=== PATIENT | male | born 1970 | race Caucasian/White ===

== ENCOUNTER 2016-05-29 12:32 | Inpatient (IN) | payer OTHER ==
[2016-05-29] MEDS ORDERED: HYDROmorphONE/DILAUDID 1 MG/ML SYR IVP ONE (13:09)
[2016-05-29] MEDS ORDERED: NS 1,000 ML IV ONE (13:09)
[2016-05-29] MEDS ORDERED: ONDANSETRON 4 MG/2 ML VIAL IVP ONE (13:09)
--- NOTE | 2016-05-29 13:13 | EDPHY ---
H & P Stated Complaint: Chrohns flare up. Sent by PCP. Time Seen by Provider: 05/29/16 12:59 HPI/ROS: CHIEF COMPLAINT: Abdominal pain, history of Crohn's HISTORY OF PRESENT ILLNESS: Patient is a 45-year-old man who comes to the emergency department from his doctor's office. He has a history of Crohn's disease status post colectomy and ileo-anal anastomosis with pouch in 2001. He frequently gets pouchitis which resolves with Flagyl. He has been on Flagyl now for 2 days. He feels dehydrated and cannot keep fluids down he continues to have a large amount of diarrhea. He saw Dr. Brown his primary today who recommended he come to the hospital for admission. Dr. Borwn spoke with Dr. Wilder over the phone who agreed to consult. They instructed him to come to the emergency department. The patient was at an emergency department at [facility] last night and treated for sinus infection. He received 2 L of hydration there as well. Does have small amount of blood in his stool. No fever. REVIEW OF SYSTEMS: Constitutional: denies: chills, fever, recent illness, recent injury EENTM: denies: blurred vision, double vision, nose congestion Respiratory: denies: cough, shortness of breath Cardiac: denies: chest pain, irregular heart rate, lightheadedness, palpitations Gastrointestinal/Abdominal: See HPI Genitourinary: denies: dysuria, frequency, hematuria, pain Musculoskeletal: denies: joint pain, muscle pain Skin: denies: lesions, rash, jaundice, bruising Neurological: denies: headache, numbness, paresthesia, tingling, dizziness, weakness Hematologic/Lymphatic: denies: blood clots, easy bleeding, easy bruising Immunologic/allergic: denies: HIV/AIDS, transplant EXAM: GENERAL: Well-appearing, well-nourished and in no acute distress. HEAD: Atraumatic, normocephalic. EYES: Pupils equal round and reactive to light, extraocular movements intact, sclera anicteric, conjunctiva are normal. ENT: TMs normal, nares patent, oropharynx clear without exudates. Moist mucous membranes. NECK: Normal range of motion, supple without lymphadenopathy or JVD. LUNGS: Breath sounds clear to auscultation bilaterally and equal. No wheezes rales or rhonchi. HEART: Regular rate and rhythm without murmurs, rubs or gallops. ABDOMEN: Left lower quadrant pain with only minimal tenderness, normoactive bowel sounds. No guarding, no rebound. No masses appreciated. BACK: No CVA tenderness, no spinal tenderness, step-offs or deformities EXTREMITIES: Normal range of motion, no pitting or edema. No clubbing or cyanosis. NEUROLOGICAL: Cranial nerves II through XII grossly intact. Normal speech, normal gait. 5/5 strength, normal movement in all extremities, normal sensation PSYCH: Normal mood, normal affect. SKIN: Warm, dry, normal turgor, no visible rashes or lesions. Source: Patient Exam Limitations: No limitations - Personal History Current Tetanus Diphtheria and Acellular Pertussis (TDAP): Yes - Medical/Surgical History Hx Asthma: No Hx Chronic Respiratory Disease: No Hx Diabetes: No Hx Cardiac Disease: No Hx Renal Disease: No Hx Cirrhosis: No Hx Alcoholism: No Hx HIV/AIDS: No Hx Splenectomy or Spleen Trauma: No Other PMH: Chrohns. Colectomy. - Family History Significant Family History: No pertinent family hx - Social History Smoking Status: Never smoked Alcohol Use: Sober Drug Use: None Constitutional: Initial Vital Signs Temperature (C) 36.6 C 05/29/16 12:38 Heart Rate 130 H 05/29/16 12:38 Respiratory Rate 18 05/29/16 12:38 Blood Pressure 111/86 H 05/29/16 12:38 O2 Sat (%) 96 05/29/16 12:38 O2 Delivery Mode Room Air O2 (L/minute) 2 Allergies/Adverse Reactions: Sulfa (Sulfonamide Antibiotics) Allergy (Intermediate, Verified 03/04/10 12:41) Hives adhesive tape Allergy (Mild, Verified 03/15/10 09:01) morphine [Morphine] Allergy (Verified 03/04/10 12:42) Itching Home Medications: Medication Instructions Recorded Aspirin [Aspirin 81mg (*)] 81 mg PO DAILY 05/29/16 Calcium Carbonate [Oyster Shell 500 mg PO DAILY 05/29/16 Calcium 500 mg (*)] Cholecalciferol Vit D3 [Vitamin D3 2,000 units PO DAILY 05/29/16 2000 units tab (OTC)] Cyclobenzaprine [Flexeril 10 MG 10 mg PO DAILY PRN 05/29/16 (*)] Herbals/Supplements -Info Only 1 ea PO DAILY 05/29/16 Imipramine HCl [Tofranil] 10 mg PO DAILY 05/29/16 Multivitamins [Multivitamin (*)] 1 each PO DAILY 05/29/16 Vedolizumab [Entyvio] 300 mg IV Q56D 05/29/16 metroNIDAZOLE [Flagyl 500 mg (*)] 500 mg PO TID PRN 05/29/16 Medical Decision Making ED Course/Re-evaluation: The patient and his are adamant about admission. The would not like to attempt control his symptoms in the emergency department. It is unclear why they were not directly admitted. Will consult the hospitalist service and repeat laboratory work and attempt to achieve pain and nausea control. 1:20 p.m. discussed the case with Leandra who will admit to the medical service with Dr. Rangel. Differential Diagnosis: Partial list of the Differential diagnosis considered include but were not limited to; Crohn's disease, hepatitis, viral syndrome, dehydration and although unlikely based on the history and physical exam, I also considered appendicitis biliary disease, intussusception, volvulus, ischemia, obstruction. - Data Points Laboratory Results: Laboratory Results 05/29/16 13:16 05/29/16 13:16 Medications Given: Discontinued Medications Hydromorphone HCl (Dilaudid) 1 mg IVP EDNOW ONE Stop: 05/29/16 13:10 Last Admin: 05/29/16 13:28 Dose: 1 mg Hydromorphone HCl (Dilaudid) 0.5 mg IVP Q3 PRN PRN Reason: Pain, Severe Unable to Take PO Stop: 06/08/16 15:46 Last Admin: 05/29/16 20:58 Dose: 0.5 mg Sodium Chloride (Ns) 1,000 mls @ 0 mls/hr IV ONCE ONE PRN Reason: Wide Open Stop: 05/29/16 13:10 Last Admin: 05/29/16 13:27 Dose: 1,000 mls Ondansetron HCl (Zofran) 4 mg IVP EDNOW ONE Stop: 05/29/16 13:10 Last Admin: 05/29/16 13:27 Dose: 4 mg Departure - Departure Disposition: [facility] Inpatient Acute Clinical Impression: Abdominal pain Qualifiers: Abdominal location: left lower quadrant Qualified Code(s): R10.32 - Left lower quadrant pain Condition: Fair
[2016-05-29 13:28] LABS: % IMMATURE GRANULYOCYTES 0.4 % (0.0-1.1); ABSOLUTE IMMATURE GRANULOCYTES 0.03 10^3/uL (0.00-0.10); ADD DIFF? NO; ADD MORPH? NO; ADD SCAN? NO; ATYPICAL LYMPHOCYTE FLAG 20 (0-99); FRAGMENT RBC FLAG 0 (0-99); HEMATOCRIT 51.5 % (40.0-51.0); HEMOGLOBIN 17.8 g/dL (13.7-17.5); LEFT SHIFT FLG 60 (0-99); LIPEMIA HEMOLYSIS FLAG 90 (0-99); MEAN CELL HEMOGLOBIN 30.3 pg (27.9-34.1); MEAN CELL HEMOGLOBIN CONCENTR. 34.6 g/dL (32.4-36.7); MEAN CELL VOLUME 87.7 fL (81.5-99.8); MEAN PLATELET VOLUME 8.7 fL (8.7-11.7); PLATELET CLUMPS FLAG 20 (0-99); PLATELET COUNT 305 10^3/uL (150-400); RED BLOOD CELL COUNT 5.87 10^6/uL (4.40-6.38)
[2016-05-29 13:45] LABS: ALANINE AMINOTRANSFERASE 57 IU/L (21-72); ALBUMIN 5.1 g/dL (3.5-5.0); ALKALINE PHOSPHATASE 102 IU/L (38-126); ANION GAP 18 mEq/L (8-16); ASPARTATE AMINOTRANSFERASE 56 IU/L (17-59); BILIRUBIN,TOTAL 1.2 mg/dL (0.1-1.4); BILIRUBIN-CONJUGATED 0.6 mg/dL (0.0-0.5); BILIRUBIN-UNCONJUGATED 0.6 mg/dL (0.0-1.1); CALCIUM 10.1 mg/dL (8.5-10.4); CARBON DIOXIDE 18 mEq/l (22-31); CHLORIDE 103 mEq/L (97-110); CREATININE 1.3 mg/dL (0.7-1.3); GLOMERULAR FILTRATION RATE 59; GLUCOSE 126 mg/dL (70-100); POTASSIUM 4.8 mEq/L (3.5-5.2); SODIUM 139 mEq/L (134-144); TOTAL PROTEIN 8.6 g/dL (6.3-8.2)
[2016-05-29] MEDS ORDERED: oxyCODONE IR 5 MG TAB PO PRN (15:47)
[2016-05-29] MEDS ORDERED: ONDANSETRON DISINTEGRATING 4 MG TAB PO PRN (15:47)
[2016-05-29] MEDS ORDERED: HYDROmorphONE/DILAUDID 1 MG/ML SYR IVP PRN (15:47)
[2016-05-29] MEDS ORDERED: ZOLPIDEM TARTRATE 5 MG TAB PO PRN (15:47)
[2016-05-29] MEDS ORDERED: CYCLOBENZAPRINE 10 MG TAB PO PRN (16:26)
--- NOTE | 2016-05-29 16:50 | GHP ---
[f rep st] HISTORY AND PHYSICAL DATE OF ADMISSION: 05/29/2016 CHIEF COMPLAINT: Abdominal pain, fever. HISTORY OF PRESENT ILLNESS: The patient is a 45-year-old man with a history significant for Crohn d isease. He underwent a total colectomy with ileoanal anastomosis many years ago. Since then, his p reliminary diagnosis of ulcerative colitis was changed to Crohn disease. He is followed by [facility] and is currently treated with Entyvio infusions. He has been on this since May 2015. Dylan moreno has a history significant for recurrent pouchitis. Typically, he gets this when he gets dehydrate d and sometimes gets secondary bowel obstructions and generally needs inpatient hydration and treatm ent. He has been ill over the last week with a viral illness and sinus symptoms. Three days ago, he deve loped fevers and increased abdominal pain, associated with nausea, vomiting. He also had increasing diarrhea. He went to the emergency department last night at [facility]. They diagnosed him zulema russo a viral illness, hydrated him, and sent him home. His labs were remarkable for a slightly elevate d creatinine of 1.34 and a white count of 10. He said he felt pretty good when he left the ER, and when he went to follow up with his primary care provider today, Dr. aSm Brown, Dr. Brown took a look at him and opted to admit him to the hospital here for further evaluation and treatment of like ly recurrent pouchitis. He has significant diarrhea, greater than his baseline, which is typically well controlled with imipramine. His abdominal pain is improved with a dose of Dilaudid. He has no current nausea, vomiting, but had some this morning in the office. He denies chest pain, shortness of breath. He has had a mild cough and increased sinus pressure and tooth pain. He has had decrea sed urination. No lower extremity edema. No muscle aches. No joint aches, and no rashes. REVIEW OF SYSTEMS: A 10-point review of systems was done with pertinent positives present in HPI. PAST MEDICAL HISTORY: 1. Crohn disease, status post laparoscopic colectomy with ileoanal anastomosis. 2. Recurrent pouchitis and small bowel obstructions with stenosis of previous bowel anastomosis. 3. Palpitations, followed by Dr. Trinh of [facility], with frequent PVCs and PACs. 4. Dyslipidemia, intolerant of statins. 5. Intermittent insomnia. 6. Gastroesophageal reflux disease, status post laparoscopic Rasheed fundoplication with hiatal vidhya ia repair. 7. Sleep apnea, status post UPPP. Previously on CPAP prior to surgery. 8. History of vitamin D deficiency. 9. History of ocular migraines. 10. Obstructive no please put under sleep apnea after status post. PAST SURGICAL HISTORY: Includes a Rasheed fundoplication, ileoanal anastomosis with pelvic pouch, an astomotic stenosis status post dilation 4-5 times, status post colectomy, status post rhinoplasty, t onsillectomy, radiofrequency inferior turbinate reduction, UPPP, right shoulder labral repair. SOCIAL HISTORY: He drinks 1-2 alcoholic drinks per month. Rarely smokes cigars and no cigarettes. No recreational drugs. He is . FAMILY HISTORY: Father had heart disease in his 60s. Mother with heart disease. Both parents also have diabetes. ALLERGIES: Sulfa drugs and simvastatin. CURRENT MEDICATIONS: Aspirin 81 daily, calcium, Flexeril 10 mg as needed, Entyvio 300 mg IV every 8 weeks, Flagyl 250 q.i.d. as needed, imipramine 10 mg at night, Multi-Vit daily, Protonix daily, vit cedeño D3 2000 daily. PHYSICAL EXAMINATION: VITAL SIGNS: He is afebrile. Heart rate 113, blood pressure 134/80, respira tions 16. He is 95% on room air. GENERAL: He is a very pleasant 45-year-old. He is currently in no distress. He is alert and oriented. Speech is fluent. HEENT: Head is atraumatic. Pupils equa l, extraocular movements intact. Sclerae anicteric. Mucous membranes are slightly dry. Oropharynx is clear. Does have some sinus tenderness over his maxillary sinuses. NECK: Supple. No adenopat hy. No thyroid nodules noted. CARDIAC: Heart is tachycardic but regular and no murmur. LUNGS: C lear bilaterally. No wheeze or rhonchi. ABDOMEN: Slightly distended. Positive bowel sounds, whic h are high pitched. No significant tenderness to deep palpation. No guarding or rebound. EXTREMIT IES: No clubbing, cyanosis, or edema. MUSCULOSKELETAL: No joint deformities or effusions. SKIN: Intact, no rash. NEUROLOGIC: He is intact, moves all 4 extremities. LABORATORY DATA: CBC shows a white count of 8.5, hemoglobin 17.8, with a platelet count of 305. Ch emistry shows normal electrolytes, CO2 of 18, BUN 16, with a creatinine of 1.3. Glucose 126. LFTs are unremarkable. ASSESSMENT AND PLAN: A 45-year-old with a history of Crohn disease, recurrent pouchitis, status pos t ileoanal anastomosis, presents with fevers for 3 days and development of abdominal pain, nausea, v omiting, and diarrhea. 1. Probable pouchitis associated with his Crohn disease. No obvious obstruction as he has diarrhea and ongoing bowel movements, although he is somewhat distended. Plan will be to admit him to the ospital for IV fluids, supportive care. Will check a stool panel for GI pathogens, including C diff icile colitis. Start him on Flagyl and Cipro for presumed pouchitis. Dr. Anderson of [facility] has been contacted. I did discuss the case in detail with him. He will see him later in consultati on and decide on further procedures if needed. 2. Crohn disease, currently on Entyvio infusions every 8 weeks and has been tolerating this well. Could consider prednisone therapy if his C difficile is negative. 3. Palpitations, seen by Dr. Trinh. History of premature ventricular contractions and premature at rial contractions, which are symptomatic. Follow up outpatient as previous. 4. Acute renal insufficiency secondary to dehydration. Creatinine 1.3. Will hydrate him and wilfred estivene to follow throughout his hospitalization. Avoid nephrotoxins for now. 5. Dyslipidemia, intolerant of statins. 6. Insomnia. 7. Obstructive sleep apnea, status post uvulopalatopharyngoplasty. 8. History of gastroesophageal reflux disease on Protonix, continue. 9. Vitamin D deficiency, on supplements. 10. Deep vein thrombosis prophylaxis. Will initiate low-molecular weight heparin. /[id number]/MODL
[2016-05-29 18:52] LABS: VITAMIN D 25-HYDROXY TOTAL 49.1 ng/mL (30-100)
--- NOTE | 2016-05-29 20:14 | GCON ---
[f rep st] CONSULTATION GASTROENTEROLOGY CONSULTATION DATE OF CONSULTATION: 05/29/2016 REFERRING PHYSICIAN: Evelyn Rangel MD REASON FOR CONSULTATION: Probable pouchitis flare. HISTORY OF PRESENT ILLNESS: The patient is a very pleasant 45-year-old male who has a history of inflammatory bowel disease. He was initially diagnosed in the late with what was thought to be ulcerative colitis at that time. He had a difficult course with multiple flares. At some point in 2001, he was placed on Remicade which did seem to work initially, but lost its efficacy. He was admitted back to the hospital in 2003 with very high-dose IV steroids, and still was not getting better. Then in 2003, he did undergo a total colectomy with ileoanal pouch formation. There was a question whether there was Crohn disease instead of ulcerative colitis, as there was some transmural inflammation. There was no evidence of granulomas on any biopsy taken that I can see in our records, and there was no evidence of any small-bowel inflammation at that time on any imaging studies. He did have multiple episodes of pouchitis which was usually well treated with the antibiotics. He has had recurrent courses of antibiotics a number of times a year for pouchitis. He used to be on Cipro and Flagyl, but in 2014 he had a tendon issue probably related to his Cipro, so he no longer uses the Cipro. In 2014 to 2015, he had multiple admissions and had a CT scan that was performed down at the [facility] in 2015 that was felt to be more consistent with Crohn colitis. The CT scan reportedly showed multifocal small bowel dilation up to 6 cm with multifocal small bowel wall thickening and mild mesenteric hyperemia with a focal transition point between dilated small bowel and decompressed bowel at anastomotic site. I do not see a biopsy confirmation of that diagnosis. He has had a number flexible sigmoidoscopy/ pouchoscopy to evaluate his pouchitis, and biopsies there revealed only pouchitis, no evidence of granulomas. He has been started on Entyvio he believes in May of 2015 which did work quite well to reduce his inflammation from what was thought to be Crohn's. He still has had a number of episodes of pouchitis. Interestingly, he gets quite dehydrated with episodes of pouchitis and requires hospitalization and IV antibiotics. This has been a recurrent, consistent presentation for him over the last few years. When he does have episodes of pouchitis, he can have 15-20 bowel movements a day. When he is in remission at this 2-5 bowel movements that are much more formed. He also has taken VSL#3 in the past with good response for his pouchitis. However, his insurance does not cover it and it is expensive for him to obtain at pressure, so he has been using different probiotics. Over the last week or so, he has had a viral illness and he thought he had some signs and symptoms of possible sinusitis. He had fevers up to 103 last night, along with some headaches, and presented to the [facility] for evaluation. They hydrated him, diagnosed him with a viral illness, and sent him home. He saw his PCP Dr. Brown up in [place] today and he called me saying that he believes the patient needs admission for his pouchitis and reviewed his previous history with me and he has referred the patient down to [facility] for admission and treatment of presumed pouchitis. Pablo does feel better with IV hydration. He no longer has any fevers. He did not complain of significant abdominal pain. He is anxious to get his antibiotics. He is admitted for the above and I am here to help evaluate and treat in that regard. PAST MEDICAL HISTORY: 1. Inflammatory bowel disease initially thought to be ulcerative colitis status post total colectomy, ileoanal anastomosis, with a small amount of rectal cuff present, now known to be Crohn disease. 2. Recurrent pouchitis, small-bowel obstructions and adhesions. 3. History of reflux status post Rasheed fundoplication. 4. Sleep apnea status post UPPP. He had used CPAP, his symptoms have recurred , but he has not yet taken his CPAP out of storage. 5. Vitamin D deficiency for which he is on supplements and has been at normal levels in the past. 6. Dyslipidemia. PAST SURGICAL HISTORY: Rasheed fundoplication, total colectomy with ileoanal pouch formation with a small amount of rectal cuff present, a UPPP, tonsillectomy, rhinoplasty, right shoulder labral repair, inferior turbinate reduction. MEDICATIONS: Medications at home include Entyvio infusions, imipramine, vitamin D 4000 units b.i.d., aspirin 81 mg, probiotics, calcium, and multivitamins. ALLERGIES: Sulfa causes rash and Cipro causes tendon issues. SOCIAL HISTORY: He does not smoke cigarettes. He drinks alcohol infrequently. FAMILY HISTORY: A cousin with Crohn disease. No other family history of inflammatory bowel disease. Mother had polyps. Both parents also have diabetes. REVIEW OF SYSTEMS: A comprehensive review systems was performed and was negative other than noted in the HPI. PHYSICAL EXAM: GENERAL: A well-developed, well-nourished male in no acute distress sitting in his bed comfortably. VITAL SIGNS: Blood pressure 120/70, pulse tachycardic at 113, respiratory rate is 16, he is 93% on room air, temperature 36.8. HEENT: Eyes: Anicteric, PERRLA, EOMI. Mouth: No lesions, moist membranes. NECK: Supple. Full range of motion. No JVD. BACK: No spine tenderness. No CVA tenderness. LUNGS: Clear to auscultation. CARDIAC: S1, S2. Tachycardic. No murmurs, rubs or gallops. ABDOMEN: Bowel sounds are normal in pitch and frequency. Soft with mild tenderness to deep palpation with no rebound, no guarding. EXTREMITIES: No cyanosis, clubbing, or edema. NEUROLOGIC: Cranial nerves intact. Nonfocal. SKIN: No stigmata of liver disease. No rashes. LABORATORY DATA: WBC 8.53, hemoglobin 17.8, hematocrit 51.5, platelet count 3/ 5. Sodium 139, potassium 4.8, chloride 103, bicarb 18, BUN 16, creatinine 1.3, glucose 126. Calcium 10.1, total bilirubin 1.2, AST 56, ALT 57, alkaline phosphatase 102, total protein 8.6, albumin 5.1, lipase 53. MEDICAL RECORDS REVIEW: In his outpatient chart we have: 1. A pouchoscopy performed December 25, 2012: Some erosions and erythema at the anastomosis. Rectal cuff was biopsied. Pathology reveals chronic colitis with focal activity. 2. CT of the abdomen and pelvis August 16, 2012: Evidence of previous colectomy with creation of ileal pouch. There was no abscess, inflammatory change, or evidence of obstruction. 3. A pouchoscopy October 20, 2010: Erythematous rectal mucosa. Pouch and anastomosis biopsied. Mild active pouchitis and mild active chronic proctitis are the 2 results. 4. Going back to biopsies from year 2001: Active colitis [id number]. 5. Pathology from February 27, 2002: [id number] moderate colitis without evidence of granulomas; however, crypt abscesses, altered underlying gland showing slight cytoplasmic differentiation and irregularity. No evidence of granulomas. 6. CT [facility] as noted in the HPI. I do not have the report, but multifocal small bowel dilation to 6 cm, multifocal small bowel thickening, mild mesenteric hyperemia. ASSESSMENT: 1. Probable flare pouchitis. 2. History of inflammatory bowel disease, likely Crohn disease. 3. Fever, probably related to pouchitis. 4. Acute renal insufficiency, most likely related to dehydration. His albumin , total protein, hemoglobin and hematocrit are elevated. His creatinine last night at [facility] was 1.34 and currently is 1.38. I think it will improve with hydration. 5. Sleep apnea. 6. History of reflux. 7. Vitamin D deficiency. 8. Dyslipidemia. RECOMMENDATIONS: 1. Antibiotics. Currently just Flagyl. Hospitalist will decide if there are any antibiotics needed for any sinus issues. Augmentin can also be used to treat pouchitis, as can Xifaxan and even vancomycin. 2. IV hydration. 3. If patient is not improving, I will want to perform a pouchoscopy for evaluation. 4. Check C diff to make sure that it is negative. If can affect the small bowel in certain cases. 5. Check vitamin D and vitamin B12. 6. Further recommendations to follow results of above and clinical course. Thank you for allowing me to participate in this patient's healthcare. Do not hesitate to call me with questions. /[id number]/MODL MTDD
[2016-05-29] MEDS ORDERED: CIPROFLOXACIN 400 MG/DEXTROSE 200 ML IV SCH (21:00)
[2016-05-29] MEDS: HYDROmorphONE/DILAUDID 1 MG/ML SYR IVP PRN (22:14)
[2016-05-29] MEDS: NS 1,000 ML IV SCH (23:07)
[2016-05-30] MEDS: HYDROmorphONE/DILAUDID 1 MG/ML SYR IVP PRN ×3 (01:45→11:39)
[2016-05-30] MEDS: NS 1,000 ML IV SCH (05:12)
[2016-05-30 06:20] LABS: % IMMATURE GRANULYOCYTES 0.2 % (0.0-1.1); ABSOLUTE IMMATURE GRANULOCYTES 0.01 10^3/uL (0.00-0.10); ADD DIFF? NO; ADD MORPH? NO; ADD SCAN? NO; ATYPICAL LYMPHOCYTE FLAG 0 (0-99); FRAGMENT RBC FLAG 0 (0-99); HEMATOCRIT 45.1 % (40.0-51.0); HEMOGLOBIN 15.3 g/dL (13.7-17.5); LEFT SHIFT FLG 80 (0-99); LIPEMIA HEMOLYSIS FLAG 90 (0-99); MEAN CELL HEMOGLOBIN 31.4 pg (27.9-34.1); MEAN CELL HEMOGLOBIN CONCENTR. 33.9 g/dL (32.4-36.7); MEAN CELL VOLUME 92.4 fL (81.5-99.8); MEAN PLATELET VOLUME 8.9 fL (8.7-11.7); PLATELET CLUMPS FLAG 0 (0-99); PLATELET COUNT 276 10^3/uL (150-400); RED BLOOD CELL COUNT 4.88 10^6/uL (4.40-6.38); RED CELL DISTRIBUTION WIDTH 13.2 % (11.5-15.2)
[2016-05-30 06:29] LABS: ALANINE AMINOTRANSFERASE 44 IU/L (21-72); ALBUMIN 3.8 g/dL (3.5-5.0); ALKALINE PHOSPHATASE 75 IU/L (38-126); ANION GAP 11 mEq/L (8-16); ASPARTATE AMINOTRANSFERASE 32 IU/L (17-59); BILIRUBIN,TOTAL 0.6 mg/dL (0.1-1.4); CALCIUM 8.6 mg/dL (8.5-10.4); CARBON DIOXIDE 20 mEq/l (22-31); CHLORIDE 111 mEq/L (97-110); CREATININE 1.1 mg/dL (0.7-1.3); GLOMERULAR FILTRATION RATE > 60; GLUCOSE 106 mg/dL (70-100); POTASSIUM 4.4 mEq/L (3.5-5.2); SODIUM 142 mEq/L (134-144); TOTAL PROTEIN 6.5 g/dL (6.3-8.2)
[2016-05-30] MEDS: ENOXAPARIN 40 MG/0.4 ML SYR SC SCH (09:11)
[2016-05-30] MEDS: CALCIUM CARBONATE 500 MG TAB PO SCH (12:54)
[2016-05-30] MEDS: CHOLECALCIFEROL VIT D3 2,000 UNITS TAB/CAP PO SCH (12:54)
[2016-05-30] MEDS: ASPIRIN 81 MG CHEWABLE TAB PO SCH (12:54)
[2016-05-30] MEDS: MULTIVITAMINS 1 EACH TAB PO SCH (12:55)
[2016-05-30] MEDS: Imipramine Hcl [Tofranil] 10 MG PO SCH (12:55)
--- NOTE | 2016-05-30 14:27 | HOSPPROG ---
Hospitalist Progress Note Assessment/Plan: 45-year-old man with a history of Crohn's disease status post colectomy with a ileal anal anastomosis and a history of recurrent pouchitis is admitted with increased abdominal pain and fever. Overnight he was placed on IV Flagyl without significant improvement. Unclear whether his symptoms are from pouchitis versus exacerbation of his Crohn's disease. Appreciate GI input. # abdominal pain, fever likely pouchitis cannot rule out active Crohn's disease. GI pathogen study negative * Evidence of possible small bowel obstruction on x-ray * See below will treat both for pouchitis and active Crohn's * On IV pain medications, high risk # Crohn's disease, on Entyvio. Discussed with Dr. Anderson. * Add Solu-Medrol * Follow symptoms * Continue NPO for now # possible pouchitis, patient without a white cell count currently on Flagyl. If does not improve with Solu-Medrol would consider changing to Invanz. Currently patient with no elevated white count and afebrile # sinus symptoms: will check a sinus CT and consider starting augmentin if positive. Avoid right now because of his potential partial SBO from Crohns. # sleep apnea status post UPPP surgery # dyslipidemia, intolerant of statins # palpitations, history of PVCs and PACs # GERD Subjective: Very pleasant. Complains of increasing distention and pain overnight continues to have watery stools Objective: Vital Signs Temp Pulse Resp BP Pulse Ox 36.9 C 95 18 118/80 97 05/30/16 08:26 05/30/16 08:26 05/30/16 08:26 05/30/16 08:26 05/30/16 08:26 Microbiology 05/29/16 19:52 Gastrointestinal Tract Panel (PCR) - Final Stool No Organism Detected Laboratory Results 05/30/16 05:42 05/30/16 05:42 05/29/16 05/30/16 05/31/16 05:59 05:59 05:59 Intake Total 2500 Balance 2500 - Physical Exam Constitutional: obese, uncomfortable Eyes: PERRL, EOMI Ears, Nose, Mouth, Throat: hearing normal, ears appear normal, dry mucous membranes Cardiovascular: regular rate and rhythym, no murmur, rub, or gallop Respiratory: no respiratory distress, no rales or rhonchi, clear to auscultation Gastrointestinal: tenderness, distension, No normoactive bowel sounds (High pitch) Genitourinary: no bladder fullness Skin: warm, normal color Musculoskeletal: normal joint ROM, no joint effusions Neurologic: AAOx3 Psychiatric: interacting appropriately, not anxious, not encephalopathic ICD10 Worksheet Patient Problems: Problems Problem Status Onset Abdominal pain Acute
--- NOTE | 2016-05-30 14:38 | SOAPPROG ---
JUDD Progress Note Assessment/Plan: Assessment:Plan: 1) Crohn's - has more pain today, XRay suggest partial SBO, his exam is c/w partial SBO -- will start IV solumedrol 2) Pouchitis - on flagyl, has tendon issue from Cipro so no cipro -- IF Solumedrol is not helping then will alter abx I suspect more of an IBD flare then pouchitis, pouchitis rarely causes SBO but it can If not getting better I may want to perform a pouchoscopy to evaluate for stenosis at anastomosis, active IBD,active pouchitis 05/30/16 14:39 Subjective: cc- pouchitis, Crohn's I have more pain had BM but not much flatus Objective: Vital Signs Temp Pulse Resp BP Pulse Ox 36.9 C 95 18 118/80 97 05/30/16 08:26 05/30/16 08:26 05/30/16 08:26 05/30/16 08:26 05/30/16 08:26 Microbiology 05/29/16 19:52 Gastrointestinal Tract Panel (PCR) - Final Stool No Organism Detected Laboratory Results 05/30/16 05:42 05/30/16 05:42 05/29/16 05/30/16 05/31/16 05:59 05:59 05:59 Intake Total 2500 Balance 2500 A+Ox3 CTA +BS, decreased hihg pitch, decreased frequency c/w partial SBO S1S2, RRR AXR with changes c/w partial SBO ICD10 Worksheet Patient Problems: Problems Problem Status Onset Abdominal pain Acute
[2016-05-30] MEDS: methylPREDNISolone SOD SUCC 40 MG/ML VIAL IVP SCH ×2 (14:53→21:59)
[2016-05-30] MEDS: ERTAPENEM 1 GM in NS 100 ML IV SCH (19:33)
[2016-05-30] MEDS: ACETAMINOPHEN 325 MG TAB PO PRN (22:28)
[2016-05-31] MEDS: ONDANSETRON 4 MG/2 ML VIAL IVP PRN ×3 (00:28→23:42)
[2016-05-31] MEDS: HYDROmorphONE/DILAUDID 1 MG/ML SYR IVP PRN ×3 (00:28→20:51)
[2016-05-31] MEDS: NS 1,000 ML IV SCH (00:29)
[2016-05-31] MEDS: methylPREDNISolone SOD SUCC 40 MG/ML VIAL IVP SCH ×3 (05:41→20:43)
[2016-05-31] MEDS: ACETAMINOPHEN 325 MG TAB PO PRN (08:59)
[2016-05-31] MEDS: CALCIUM CARBONATE 500 MG TAB PO SCH (09:00)
[2016-05-31] MEDS: ASPIRIN 81 MG CHEWABLE TAB PO SCH (09:00)
[2016-05-31] MEDS: Imipramine Hcl [Tofranil] 10 MG PO SCH (09:01)
[2016-05-31] MEDS: CHOLECALCIFEROL VIT D3 2,000 UNITS TAB/CAP PO SCH (09:01)
[2016-05-31] MEDS: MULTIVITAMINS 1 EACH TAB PO SCH (09:01)
[2016-05-31] MEDS: ERTAPENEM 1 GM in NS 100 ML IV SCH (09:06)
[2016-05-31] MEDS: ENOXAPARIN 40 MG/0.4 ML SYR SC SCH (11:36)
--- NOTE | 2016-05-31 11:46 | SOAPPROG ---
JUDD Progress Note Assessment/Plan: Assessment:Plan: 1) Crohn's - has more pain today, XRay suggest partial SBO, his exam is c/w partial SBO -- will start IV solumedrol 2) Pouchitis - on flagyl, has tendon issue from Cipro so no cipro -- IF Solumedrol is not helping then will alter abx I suspect more of an IBD flare then pouchitis, pouchitis rarely causes SBO but it can If not getting better I may want to perform a pouchoscopy to evaluate for stenosis at anastomosis, active IBD,active pouchitis 05/30/16 14:39 05/31/16 11:43 1) Crohns - feels much better with IV steroids, less pain, had BM. advance to clears, if tolerates can change to PO prednisone 40mg daily 2) Pouchitis - on abx, it maybe that he misinterpreted a flare as pouchitis, will continue abx course - he also being tx'd for sinusitis 3) Sinusitis - abx as per hospitalist and IV steroids 4) Vit D and B12 - both nml no need for pouchoscopy if he is improving with our tx will follow Subjective: cc- pouchitis, IBD flare, sinusitis overall better with IV steroids and IV abx, less pain, no n/v no f/c/s Objective: Vital Signs Temp Pulse Resp BP Pulse Ox 36.7 C 88 18 132/79 H 95 05/31/16 08:21 05/31/16 08:21 05/31/16 08:21 05/31/16 08:21 05/31/16 11:14 Microbiology 05/29/16 19:52 Gastrointestinal Tract Panel (PCR) - Final Stool No Organism Detected Laboratory Results 05/30/16 05:42 05/30/16 05:42 05/30/16 05/31/16 06/01/16 05:59 05:59 05:59 Intake Total 2500 750 1445 Output Total 300 Balance 2500 450 1445 A+Ox3 +BS, decreased but no high pitch tinkling, soft CTA S1S2, RRR Laboratory Tests 05/29/16 13:16 Vitamin B12 511 25-OH Vitamin D Total 49.1 ICD10 Worksheet Patient Problems: Problems Problem Status Onset Abdominal pain Acute
--- NOTE | 2016-05-31 16:45 | HOSPPROG ---
Hospitalist Progress Note Assessment/Plan: 45-year-old man with a history of Crohn's disease status post colectomy with a ileal anal anastomosis and a history of recurrent pouchitis is admitted with increased abdominal pain and fever. Had been on IV Flagyl without much improvement and IV steroids were added with some improvement. Patient is declining an NG tube. Today he reports moving gas and some stool. Patient is new to me today. # abdominal pain, fever likely pouchitis cannot rule out active Crohn's disease. GI pathogen study negative * Evidence of possible small bowel obstruction on x-ray * See below will treat both for pouchitis and active Crohn's * On IV pain medications, high risk # Crohn's disease, on Entyvio. Discussed with Dr. Anderson. Currently on high- dose Solu-Medrol and his symptoms are so improving. Today was moving some gas inset he moved his bowels slightly. * Continue NPO for now # possible pouchitis, patient without a white cell count currently on Flagyl. If does not improve with Solu-Medrol would consider changing to Invanz. Currently patient with no elevated white count and afebrile. GI is following and considering and EGD to examine the pouch if necessary. # sinus symptoms: CT findings shows severe bilateral maxillary sinusitis and ethmoid I thus. Though he has some pressure he has no fever. Augmentin would be the usual medication to use in this situation get in light of his bowel obstruction will discuss this with GI before beginning Augmentin. # sleep apnea status post UPPP surgery # dyslipidemia, intolerant of statins # palpitations, history of PVCs and PACs # GERD: Will add Pepcid. Plan: Continue high-dose steroids had Pepcid today. Will continue to follow with Gastroenterology. He seems to be improving. No clear day for discharges establish now. Subjective: Reports he is feeling improved. Moved his bowels and had some gas. Says his abdomen is less distended and he has no nausea or vomiting. He is NPO. Is has some facial pressure and CT notes and bilateral maxillary sinusitis. No purulent drainage is noted. Denies fever and chills Objective: Vital Signs Temp Pulse Resp BP Pulse Ox 36.9 C 74 18 144/95 H 94 05/31/16 16:35 05/31/16 16:35 05/31/16 16:35 05/31/16 16:35 05/31/16 16:35 Laboratory Results 05/30/16 05:42 05/30/16 05:42 05/30/16 05/31/16 06/01/16 05:59 05:59 05:59 Intake Total 2500 750 1445 Output Total 300 150 Balance 2500 450 1295 - Time Spent With Patient Time Spent with Patient: greater than 35 minutes Time Spent with Patient: Greater than 35 minutes spent on this patients care, greater than 50% of time spent counseling, educating, and coordinating care regarding the above mentioned plan. - Physical Exam Constitutional: no apparent distress Eyes: PERRL, anicteric sclera Ears, Nose, Mouth, Throat: moist mucous membranes, hearing normal, ears appear normal, no oral mucosal ulcers, other (No purulent nasal discharge.) Cardiovascular: regular rate and rhythym, no murmur, rub, or gallop Respiratory: no respiratory distress, no rales or rhonchi Gastrointestinal: distension, other (Hypoactive bowel sounds with slight overall tenderness without a palpable mass or rebound. Patient says that the distention is less than 2 days ago.) Genitourinary: no bladder fullness Skin: warm Musculoskeletal: full muscle strength Neurologic: AAOx3, CN II-XII Intact ICD10 Worksheet Patient Problems: Problems Problem Status Onset Abdominal pain Acute
[2016-05-31] MEDS: FAMOTIDINE 20 MG/NACL 50 ML IV SCH ×2 (17:11→20:43)
[2016-05-31] MEDS: AMPICILLIN/SULBACTAM 1.5 GM in NS 50 ML IV SCH ×2 (18:39→23:40)
[2016-05-31] MEDS: NYSTATIN SUSP 500000 UNIT/5 ML UDCUP PO SCH (20:41)
[2016-06-01] MEDS: AMPICILLIN/SULBACTAM 1.5 GM in NS 50 ML IV SCH ×3 (06:11→18:38)
[2016-06-01] MEDS: NYSTATIN SUSP 500000 UNIT/5 ML UDCUP PO SCH ×4 (06:11→20:27)
[2016-06-01] MEDS: methylPREDNISolone SOD SUCC 40 MG/ML VIAL IVP SCH ×3 (06:12→21:52)
[2016-06-01] MEDS: Imipramine Hcl [Tofranil] 10 MG PO SCH (09:13)
[2016-06-01] MEDS: MULTIVITAMINS 1 EACH TAB PO SCH (09:14)
[2016-06-01] MEDS: CHOLECALCIFEROL VIT D3 2,000 UNITS TAB/CAP PO SCH (09:15)
[2016-06-01] MEDS: ERTAPENEM 1 GM in NS 100 ML IV SCH (09:15)
[2016-06-01] MEDS: FAMOTIDINE 20 MG/NACL 50 ML IV SCH (09:15)
[2016-06-01] MEDS: ASPIRIN 81 MG CHEWABLE TAB PO SCH (09:16)
[2016-06-01] MEDS: CALCIUM CARBONATE 500 MG TAB PO SCH (09:16)
[2016-06-01] MEDS: ENOXAPARIN 40 MG/0.4 ML SYR SC SCH (09:17)
[2016-06-01] MEDS ORDERED: guaiFENesin/CODEINE PHOS 10 ML UDCUP PO PRN (13:02)
--- NOTE | 2016-06-01 13:07 | HOSPPROG ---
Hospitalist Progress Note Assessment/Plan: Assessment: 45-year-old male presents with acute, recurrent pouchitis complicated by acute Crohn's flare, partial small bowel obstruction, sinusitis Plan: # Abdominal pain. Acute, most likely multifactorial including pouchitis and acute Crohn's flare # Crohn's disease. Acute, on Entyvio at home, currently holding -continue IV Solu-Medrol -appreciate ongoing GI consultation -placed on clear liquid diet, currently tolerating -continue on IV fluids, repeat creatinine BUN and lytes in a.m. # Possible pouchitis. Initially treated with Invanz and metronidazole, has been adjusted to Unasyn and metronidazole, once affectively tolerating oral intake, will recommend adjusting to oral antibiotics # Acute sinusitis. CT findings shows severe bilateral maxillary sinusitis and ethmoid sinus, with tenderness to palpation over the maxillary sinuses and no improvement while on Invanz -a day 2 of Unasyn, symptoms dramatically improving -continue Unasyn and transition to Augmentin after he is affectively tolerating oral intake without any GI symptoms -add Mucinex and guaifenesin/codeine # Acute partial SBO. Present on abdominal imaging, most likely associated with his Crohn's disease # DAVE. Chronic # Palpitations. History of PACs and PVCs, has had recent cardiac outpatient workup # GERD. On Pepcid twice daily Diet. Clear liquid diet, advanced under the direction of gastroenterology Prophylaxis. High risk patient, Lovenox 40 Code. Full Disposition. Anticipated discharge uncertain this time, pending ability to tolerate oral intake and transition to oral steroids. Subjective: Patient reports that his sinus discomfort has improved, cough persists, loose bowel movement Objective: Vital Signs Temp Pulse Resp BP Pulse Ox 36.9 C 80 18 142/87 H 94 06/01/16 08:00 06/01/16 08:00 06/01/16 08:00 06/01/16 08:00 06/01/16 08:00 Laboratory Results 05/30/16 05:42 05/30/16 05:42 05/31/16 06/01/16 06/02/16 05:59 05:59 05:59 Intake Total 750 3333 Output Total 300 150 Balance 450 3183 - Physical Exam Constitutional: no apparent distress, appears nourished, not in pain, No uncomfortable Ears, Nose, Mouth, Throat: moist mucous membranes, hearing normal, other (No maxillary sinus tenderness to palpation, no ethmoid sinus tenderness to palpation) Cardiovascular: other (Frequent ectopy), No systolic murmur, No tachycardia, No edema Respiratory: no respiratory distress, no rales or rhonchi, clear to auscultation Gastrointestinal: normoactive bowel sounds, no palpable masses, distension ( Moderately), No tenderness Neurologic: AAOx3, sensation intact bilaterally Psychiatric: interacting appropriately, not anxious, not encephalopathic, thought process linear ICD10 Worksheet Patient Problems: Problems Problem Status Onset Abdominal pain Acute
[2016-06-01] MEDS: guaiFENesin 600 MG TAB.ER PO SCH ×2 (13:53→20:27)
[2016-06-01] MEDS: PANTOPRAZOLE SODIUM 40 MG TAB PO SCH (14:10)
[2016-06-01] MEDS ORDERED: CALCIUM CARBONATE 500 MG CHEWABLE TAB PO PRN (14:39)
--- NOTE | 2016-06-01 14:47 | SOAPPROG ---
JUDD Progress Note Assessment/Plan: Assessment:Plan: 1) Crohn's - has more pain today, XRay suggest partial SBO, his exam is c/w partial SBO -- will start IV solumedrol 2) Pouchitis - on flagyl, has tendon issue from Cipro so no cipro -- IF Solumedrol is not helping then will alter abx I suspect more of an IBD flare then pouchitis, pouchitis rarely causes SBO but it can If not getting better I may want to perform a pouchoscopy to evaluate for stenosis at anastomosis, active IBD,active pouchitis 05/30/16 14:39 05/31/16 11:43 1) Crohns - feels much better with IV steroids, less pain, had BM. advance to clears, if tolerates can change to PO prednisone 40mg daily 2) Pouchitis - on abx, it maybe that he misinterpreted a flare as pouchitis, will continue abx course - he also being tx'd for sinusitis 3) Sinusitis - abx as per hospitalist and IV steroids 4) Vit D and B12 - both nml no need for pouchoscopy if he is improving with our tx will follow 06/01/16 14:44 as above 1) Crohn's - improved on IV solumedrol but not yet ready for solids, stay on clears today, Will cell changer to PO prednisone 40mg in am 2) Pouchitis - on flagyl and Unasyn (for sinusitis but will work for pouchitis) , they will change Unasyn to Augmentin and that is good for pouchitis as well 3) Sinusitis - doing better on Unasyn, will be changed to PO Augmentin 4) hiccups - on PPI, will add prn antacid with calcium (tums) Dr. Awan to take over inpt service at 7 am tomorrow I suspect Pablo will be ready to go home by Sunday (maybe Sunday pm if rapid improvement) Subjective: cc- Crohn's,. SBO, pouchitis, sinusitis has hiccups today - says reflux from steroids he feels better but says he is not ready to advance diet Objective: Vital Signs Temp Pulse Resp BP Pulse Ox 36.9 C 80 18 142/87 H 94 06/01/16 08:00 06/01/16 08:00 06/01/16 08:00 06/01/16 08:00 06/01/16 08:00 Laboratory Results 05/30/16 05:42 05/30/16 05:42 05/31/16 06/01/16 06/02/16 05:59 05:59 05:59 Intake Total 750 3333 Output Total 300 150 Balance 450 3183 A+Ox3 CTA S1S2, RRR +BS, soft, decreased frequency, soft, minimal tenderness to deep palpation ICD10 Worksheet Patient Problems: Problems Problem Status Onset Abdominal pain Acute
[2016-06-02] MEDS: AMPICILLIN/SULBACTAM 1.5 GM in NS 50 ML IV SCH ×2 (00:05→06:53)
[2016-06-02] MEDS: NYSTATIN SUSP 500000 UNIT/5 ML UDCUP PO SCH ×2 (05:36→11:29)
[2016-06-02 06:09] LABS: HEMATOCRIT 42.5 % (40.0-51.0); HEMOGLOBIN 14.6 g/dL (13.7-17.5); MEAN CELL HEMOGLOBIN 31.1 pg (27.9-34.1); MEAN CELL HEMOGLOBIN CONCENTR. 34.4 g/dL (32.4-36.7); MEAN CELL VOLUME 90.6 fL (81.5-99.8); RED BLOOD CELL COUNT 4.69 10^6/uL (4.40-6.38); RED CELL DISTRIBUTION WIDTH 13.2 % (11.5-15.2)
[2016-06-02 06:20] LABS: ANION GAP 13 mEq/L (8-16); CALCIUM 8.7 mg/dL (8.5-10.4); CARBON DIOXIDE 16 mEq/l (22-31); CHLORIDE 109 mEq/L (97-110); CREATININE 0.8 mg/dL (0.7-1.3); GLOMERULAR FILTRATION RATE > 60; GLUCOSE 128 mg/dL (70-100); POTASSIUM 4.5 mEq/L (3.5-5.2); SODIUM 138 mEq/L (134-144)
[2016-06-02] MEDS: MULTIVITAMINS 1 EACH TAB PO SCH (08:20)
[2016-06-02] MEDS: CHOLECALCIFEROL VIT D3 2,000 UNITS TAB/CAP PO SCH (08:20)
[2016-06-02] MEDS: ASPIRIN 81 MG CHEWABLE TAB PO SCH (08:21)
[2016-06-02] MEDS: PANTOPRAZOLE SODIUM 40 MG TAB PO SCH (08:21)
[2016-06-02] MEDS: guaiFENesin 600 MG TAB.ER PO SCH (08:21)
[2016-06-02] MEDS: ENOXAPARIN 40 MG/0.4 ML SYR SC SCH (08:21)
[2016-06-02] MEDS: CALCIUM CARBONATE 500 MG TAB PO SCH (08:21)
[2016-06-02] MEDS: Imipramine Hcl [Tofranil] 10 MG PO SCH (08:30)
[2016-06-02 08:34] VITALS: RESP 18
[2016-06-02] MEDS ORDERED: AMOXICILLIN/CLAVULANATE POT 875/125 MG TAB PO SCH (09:00)
[2016-06-02] MEDS ORDERED: predniSONE 20 MG TAB PO SCH (09:00)
[2016-06-02] MEDS: NS 1,000 ML IV SCH (11:31)
[2016-06-02 12:17] VITALS: BP 125/93; PULSE 64; TEMP 98.3; O2SAT 94
[2016-06-02] MEDS ORDERED: BENZONATATE 100 MG CAP PO PRN (13:59)
--- NOTE | 2016-06-02 13:59 | PDDCSUM ---
Discharge Summary Discharge Summary: DISCHARGE SUMMARY FOLLOW-UP ITEMS: None DATE OF ADMISSION: 05/29/16 DATE OF DISCHARGE: 06/02/2016 DISCHARGE DIAGNOSES: 1. Acute Crohn's disease flare 2. Possible pouchitis 3. Acute sinusitis 4. Acute partial small-bowel obstruction acute CONSULTATIONS: Gastroenterology PROCEDURES / IMAGING: X-ray demonstrating prominent small bowel distension, face CT demonstrating sinus disease CHIEF COMPLAINT: Acute abdominal pain SUBJECTIVE: Patient reports abdominal pain improved, continues to have loose bowel movements but not profuse PHYSICAL EXAM ON DISCHARGE: Systolic blood pressure is 110-140, heart rate in the 80s, afebrile overnight, satting well on room air, abdomen is soft mildly protuberant but nontender, bowel sounds are present, heart rate is regular with regular rhythm, breath sounds are clear to auscultation bilaterally LABS ON DISCHARGE: Creatinine 0.8, potassium 4.5, white blood cell count 8900, hemoglobin 14.6 HOSPITAL COURSE BY PROBLEM: 1. Acute Crohn's disease flare. Is suspected that the patient's main symptoms originated from a Crohn's disease flare and he was placed on IV Solu-Medrol. His abdominal symptoms did improve on the IV steroids. He has been transitioned to oral steroids and is tolerating them well. I recommend that he continue prednisone 40 mg for the next week and then 20 mg daily thereafter. He should see his primary hydro technician in the interim and determine the exact dosing and taper schedule. He will also need some as needed oxycodone for pain control as well as Zofran for nausea. Gastroenterology saw the patient in consultation, did not recommend scoping him at this time. 2. Possible pouchitis. The patient's symptoms may have also been produced by some pouchitis and he was initiated on Invanz and metronidazole. I discussed his antibiotic regiment with Dr. Anderson, and we agreed that would receive adequate GI coverage with Augmentin and metronidazole moving forward. Will continue these medications for at least the next 7 days and follow up with his outpatient hydro technician. 3. Acute sinusitis. Patient had significant sinus symptoms including maxillary tenderness, sinus congestion, cough, and a CT demonstrated severe bilateral maxillary sinusitis. Patient was initiated on Unasyn and this was transitioned to Augmentin. Will receive a full course of treatment. I recommended over-the- counter Mucinex and cetirizine as well as prescription Tessalon Perles as needed cough. 4. Partial small bowel obstruction. Acute, present on abdominal imaging, most likely in the setting of inflammatory bowel disease. His diet was restricted and then he was advanced to clear liquids on 06/01, advance to regular on 06/02 , and he is safe for discharge home at this time. He is moving his bowels. DISCHARGE MEDICATIONS: Please see official discharge medication reconciliation sheet in chart , as needed oxycodone, as needed Zofran, prednisone 40 mg daily, Augmentin 875 twice daily, Metronidazole 500 mg 3 times daily. DISCHARGE INSTRUCTIONS: Please follow up with primary hydro technician within 3-5 days. TIME SPENT: Greater than 30 minutes were spent on direct patient care, as well as discharge planning and preparation.
--- NOTE | 2016-06-02 14:54 | SOAPPROG ---
[place] Progress Note Assessment/Plan: Assessment: 45 year old with history of IBD, Was previously diagnosed with UC and had undergone total colectomy with ileo-anal pull through. He has had recurent pouchits, but about three years ago was diagnosed with Crohn's disease with SB involvement. Present with SBO, initially treated for pouchitis but found to have SB inflammation. Started on Solumedrol for Crohn's flare. Has responded to steroids. Clinically improving. Plan: 1. Advance diet as tolerated 2. Prednisone with taper, 40 mg taper by 5 mg every 7 days until off 3. Continue on Entyvio, He will follow up with Dr. Dumont and discuss possibly shortening the interval if infusions from 8 to 7 weeks (tends to flare somewhat prior to next infusion. 4. Anticipate patient to be discharged home today. 06/02/16 14:48 Subjective: CC: Admitted with Abdominal pain, SBO, hx of IBD Patient improved on Solumedrol Objective: Vital Signs Temp Pulse Resp BP Pulse Ox 36.8 C 64 18 125/93 H 94 06/02/16 12:14 06/02/16 12:14 06/02/16 12:14 06/02/16 12:14 06/02/16 12:14 Laboratory Results 06/02/16 05:19 06/02/16 05:19 06/01/16 06/02/16 06/03/16 05:59 05:59 05:59 Intake Total 3333 4131 400 Output Total 150 900 Balance 3183 3231 400 Generic Name Dose Route Start Last Admin Trade Name Freq PRN Reason Stop Dose Admin Acetaminophen 650 mg 05/29/16 15:47 05/31/16 08:59 Tylenol PO 11/25/16 15:46 650 mg Q4HRS PRN Administration Pain, Mild/Fever, Can Take PO Amoxicillin/Clavulanate Potassium 875 mg 06/02/16 09:00 06/02/16 11:29 Augmentin 875mg PO 07/02/16 08:59 875 mg BID LAUREN Administration Protocol Aspirin 81 mg 05/30/16 09:00 06/02/16 08:21 Aspirin PO 11/26/16 08:59 81 mg DAILY LAUREN Administration Benzonatate 100 mg 06/02/16 13:59 06/02/16 14:22 Tessalon Pearles PO 11/29/16 13:58 100 mg TID PRN Administration Cough, Mild Calcium Carbonate 500 mg 05/30/16 09:00 06/02/16 08:21 Oyster Shell Calcium PO 11/26/16 08:59 500 mg DAILY LAUREN Administration Calcium Carbonate 500 mg 06/01/16 14:39 Tums PO 11/28/16 14:38 QID PRN Indigestion Cholecalciferol 2,000 units 05/30/16 09:00 06/02/16 08:20 Vitamin D PO 11/26/16 08:59 2,000 units DAILY LAUREN Administration Cyclobenzaprine HCl 10 mg 05/29/16 16:26 Flexeril PO 11/25/16 16:25 DAILY PRN Spasms Enoxaparin Sodium 40 mg 05/30/16 09:00 06/02/16 08:21 Lovenox SC 11/26/16 08:59 40 mg DAILY LAUREN Administration Guaifenesin 1,200 mg 06/01/16 13:30 06/02/16 08:21 Mucinex PO 11/28/16 13:29 1,200 mg BID LAUREN Administration Guaifenesin/Codeine Phosphate 10 ml 06/01/16 13:02 06/01/16 21:53 Robitussin Ac PO 11/28/16 13:01 10 ml Q6HRS PRN Administration Cough, Moderate Hydromorphone HCl 0.5 - 1 mg 05/29/16 21:47 05/31/16 20:51 Dilaudid IVP 06/08/16 21:46 0.5 mg Q2HRS PRN Administration Pain, Severe Unable to Take PO Sodium Chloride 1,000 mls @ 150 mls/hr 05/29/16 16:00 06/02/16 11:31 Ns IV 11/25/16 15:59 1,000 mls CONT LAUREN Administration Metronidazole/Sodium Chloride 100 mls @ 100 mls/hr 05/29/16 17:19 06/02/16 14 :22 Flagyl 500 Mg (Premix) IV 06/28/16 17:18 100 mls Q8HRS LAUREN Administration Protocol Miscellaneous Medication 10 mg 05/30/16 09:00 06/02/16 08:30 Imipramine Hcl [Tofranil] PO 11/26/16 08:59 Not Given DAILY [facility] Multivitamins 1 each 05/30/16 09:00 06/02/16 08:20 Tab-A-Ashley PO 11/26/16 08:59 1 each DAILY LAUREN Administration Nystatin 500,000 unit 05/31/16 21:00 06/02/16 11:29 Mycostatin Oral Liquid PO 06/30/16 20:59 500,000 unit QID LAUREN Administration Protocol Ondansetron HCl 4 mg 05/29/16 15:47 05/31/16 23:42 Zofran IVP 11/25/16 15:46 4 mg Q4HRS PRN Administration Nausea/Vomiting, Can't Take PO Ondansetron HCl 4 mg 05/29/16 15:47 06/01/16 22:03 Zofran Odt PO 11/25/16 15:46 4 mg Q4HRS PRN Administration Nausea/Vomiting, Use 1st Oxycodone HCl 5 - 10 mg 05/29/16 15:47 05/29/16 16:44 Oxycodone Ir PO 06/08/16 15:46 10 mg Q3HRS PRN Administration Pain, Severe Able to Take PO Pantoprazole Sodium 40 mg 06/01/16 14:00 06/02/16 08:21 Protonix PO 11/28/16 13:59 40 mg DAILY LAUREN Administration Prednisone 40 mg 06/02/16 09:00 06/02/16 08:20 Prednisone PO 11/29/16 08:59 40 mg DAILY LAUREN Administration Zolpidem Tartrate 5 - 10 mg 05/29/16 15:47 Ambien PO 11/25/16 15:46 HS PRN Sleep/Insomnia, use 1st Discontinued Medications Generic Name Dose Route Start Last Admin Trade Name Freq PRN Reason Stop Dose Admin Hydromorphone HCl 1 mg 05/29/16 13:09 05/29/16 13:28 Dilaudid IVP 05/29/16 13:10 1 mg EDNOW ONE Administration Hydromorphone HCl 0.5 mg 05/29/16 15:47 05/29/16 20:58 Dilaudid IVP 06/08/16 15:46 0.5 mg Q3 PRN Administration Pain, Severe Unable to Take PO Sodium Chloride 1,000 mls @ 0 mls/hr 05/29/16 13:09 05/29/16 13:27 Ns IV 05/29/16 13:10 1,000 mls ONCE ONE Administration Wide Open Ciprofloxacin/Dextrose 200 mls @ 200 mls/hr 05/29/16 21:00 Cipro 400 Mg (Premix) IV 06/28/16 20:59 Q12HRS LAUREN Protocol Metronidazole/Sodium Chloride 100 mls @ 100 mls/hr 05/29/16 22:00 Flagyl 500 Mg (Premix) IV 06/28/16 21:59 Q8HRS LAUREN Protocol Ertapenem 1 gm/ Sodium 100 mls @ 200 mls/hr 05/30/16 19:00 06/01/16 09:15 Chloride IV 06/29/16 18:59 100 mls DAILY LAUREN Administration Famotidine/Sodium Chloride 50 mls @ 200 mls/hr 05/31/16 17:00 06/01/16 09:15 Pepcid 20 Mg (Premix) IV 11/27/16 16:59 50 mls Q12HRS LAUREN Administration Ampicillin Sodium/Sulbactam 50 mls @ 200 mls/hr 05/31/16 18:00 06/02/16 06:53 Sodium 1.5 gm/ Sodium Chloride IV 06/30/16 17:59 50 mls Q6HRS LAUREN Administration Protocol Methylprednisolone Sodium Succinate 40 mg 05/30/16 14:27 06/01/16 21:52 Solu-Medrol IVP 06/02/16 00:05 40 mg Q8HRS LAUREN Administration Ondansetron HCl 4 mg 05/29/16 13:09 05/29/16 13:27 Zofran IVP 05/29/16 13:10 4 mg EDNOW ONE Administration Physical Exam - Physical Exam General Appearance: alert, no apparent distress Respiratory: lungs clear Cardiac/Chest: regular rate, rhythm Abdomen: normal bowel sounds, soft Skin: normal color, warm/dry Neuro/Psych: alert, normal mood/affect ICD10 Worksheet Patient Problems: Problems Problem Status Onset Abdominal pain Acute
== END 2016-06-02 16:32 | disposition home or self-care (01) | DRG 386 ==
LOC: F1N 14:18 → OBSVTOIN 15:55
PROVIDERS: ADMIT Internal Medicine; ATTEND Internal Medicine
DX: K50.912 Crohn's disease, unspecified, with intestinal obstruction (principal); K91.850 Pouchitis; E55.9 Vitamin D deficiency, unspecified; K21.9 Gastro-esophageal reflux disease without esophagitis; J01.20 Acute ethmoidal sinusitis, unspecified; J01.00 Acute maxillary sinusitis, unspecified; G47.30 Sleep apnea, unspecified; E78.5 Hyperlipidemia, unspecified
CPT/HCPCS: 82607-90; 96374; J0744; J1170; J1335; J1650; J2405

== ENCOUNTER → 2016-11-15 | Outpatient (CLI) | payer OTHER | LOC: BRMIMAGING 16:07 | PROVIDERS: ATTEND Internal Medicine Rheumatology | DX: M20.12 Hallux valgus (acquired), left foot (principal) | CPT/HCPCS: 73630-PO ==